=== PATIENT | male | born 1995 | race African-American/Black ===

== ENCOUNTER 2023-11-23 00:26 | Emergency (ER) | payer MEDICAID, OTHER ==
[~2023-11-23] VITALS: Ht 185.4 cm; Wt 82.0 kg
[2023-11-23 00:42] VITALS: BP 154/94; PULSE 52; RESP 16; TEMP 97.9; O2SAT 98
== END 2023-11-23 01:35 | disposition left against medical advice (07) ==
LOC: ER 00:46
DX: R51.9 Headache, unspecified (principal); M54.9 Dorsalgia, unspecified; Z53.21 Procedure and treatment not carried out due to patient leaving prior to being seen by health care provider